=== PATIENT | male | born 1935 | race Caucasian/White ===

== ENCOUNTER 2025-04-11 15:21 | Emergency (ER) | payer MEDICARE ==
[~2025-04-11] VITALS: Ht 188 cm; Wt 81.6 kg
[2025-04-11 15:32] VITALS: TEMP 98.3
[2025-04-11 16:24] LABS: PLATELET COUNT (AUTO) 250 K/uL (150-450); RED BLOOD CELL COUNT(AUTO) 3.90 MIL/uL (4.5-6.0); RED CELL DISTRIBUTION WIDTH 15.1 % (11.5-15.0); WHITE BLOOD COUNT (AUTO) 8.6 K/uL (4.3-11.0)
[2025-04-11 16:33] LABS: CALCIUM, SERUM 8.9 mg/dL (8.5-10.1); CREATININE 0.9 mg/dL (0.6-1.3); SODIUM SERUM 139 mmol/L (136-145); UREA NITROGEN, BLOOD 19 mg/dL (7-18)
[2025-04-11 16:44] LABS: ALCOHOL, BLOOD < 3 mg/dL (0-10)
[2025-04-11 16:47] LABS: ASPARTATE AMINOTRANSFERASE 15 U/L (15-37); TOTAL PROTEIN, SERUM 6.8 g/dL (6.4-8.2)
[2025-04-11] MEDS ORDERED: ASPI-1169 PO (17:09)
[2025-04-11] MEDS ORDERED: GABA-532 PO (17:09)
[2025-04-11] MEDS ORDERED: ACET325T53 PO (17:09)
[2025-04-11] MEDS ORDERED: TAMS-12 PO (17:09)
[2025-04-11] MEDS ORDERED: DOCU100C36 PO (17:09)
[2025-04-11] MEDS ORDERED: LORA-259 PO (17:09)
[2025-04-11] MEDS ORDERED: DUTA0.5C37 PO (17:09)
[2025-04-11] MEDS ORDERED: MECL-182 PO (17:09)
[2025-04-11] MEDS ORDERED: ESCI5TAB PO (17:09)
[2025-04-11] MEDS ORDERED: LATA7.5D EACHEYE (17:09)
[2025-04-11 17:31] LABS: APPEARANCE,URINE SLIGHTLY CLOUDY (CLEAR); BLOOD, URINE TRACE-INTA Ery/uL (NEGATIVE); LEUKOCYTE ESTERASE ,URINE 2+ (NEGATIVE); NITRITE, URINE POSITIVE (NEGATIVE); UGLUCOSE NEGATIVE (NEGATIVE)
[2025-04-11 17:46] LABS: AMPHETAMINE, URINE NEGATIVE (NEGATIVE); BARBITURATE, URINE NEGATIVE (NEGATIVE); BENZODIAZEPINE, URINE NEGATIVE (NEGATIVE); CANNABINOID, URINE NEGATIVE (NEGATIVE); COCCAINE, URINE NEGATIVE (NEGATIVE); OPIATE, URINE NEGATIVE (NEGATIVE)
[2025-04-11 18:39] LABS: ADD URINE CULTURE YES; SQUAMOUS EPITHELIAL CELL,UR 0-2 /HPF (None Seen)
[2025-04-11 19:30] VITALS: BP 114/59; O2SAT 97
== END 2025-04-11 17:50 ==
LOC: ER 15:50
DX: R46.2 Strange and inexplicable behavior (principal); E11.9 Type 2 diabetes mellitus without complications; N40.0 Benign prostatic hyperplasia without lower urinary tract symptoms; Z79.82 Long term (current) use of aspirin; Z79.899 Other long term (current) drug therapy; Z87.39 Personal history of other diseases of the musculoskeletal system and connective tissue; Z20.822 Contact with and (suspected) exposure to COVID-19
CPT/HCPCS: 36415; 80048-TC; 80076-TC; 81001; 85025-TC; 87086-TC; G0480